=== PATIENT | male | born 1945 | race Native Hawaiian/Other Pacific Islander ===

== ENCOUNTER 2016-07-19 15:16 | Outpatient (CLI) | payer OTHER ==
[2016-07-19] MEDS ORDERED: ALLO300T23 PO (16:01)
[2016-07-19] MEDS ORDERED: KLOR-CON M1010 MEQ PO (16:01)
[2016-07-19] MEDS ORDERED: METFTAB PO (16:03)
[2016-07-19] MEDS ORDERED: SIMV40TA57 (16:04)
[2016-07-19] MEDS ORDERED: FURO40TA93 PO ×2 (16:04→23:30)
[2016-07-19] MEDS ORDERED: TYLENOL/COD PO (16:05)
[2016-07-19] MEDS ORDERED: COLCHICINE0.6 MG PO (16:05)
[2016-07-19] MEDS ORDERED: CRESTOR20 MG PO (16:06)
[2016-07-19] MEDS ORDERED: METFORMIN HCL500 M1 PO (16:07)
[2016-07-19] MEDS ORDERED: EQ ASPIRIN325 M2 PO (16:07)
[2016-07-19] MEDS ORDERED: TRIA37.541 PO (16:07)
[2016-07-19] MEDS ORDERED: GLIM2TAB PO (16:09)
[2016-07-19] MEDS ORDERED: BENA20TA2 PO (16:09)
[2016-07-19] MEDS ORDERED: GABA300C2 PO ×2 (16:10→23:34)
[2016-07-19] MEDS ORDERED: FURO20TA67 PO (23:33)
== END 2016-07-19 15:40 | disposition short-term general hospital (02) ==
LOC: AMB 15:16
DX: R41.82 Altered mental status, unspecified (principal); E16.1 Other hypoglycemia
CPT/HCPCS: A0425; A0427

== ENCOUNTER 2016-07-19 15:45 | Inpatient (IN) | payer OTHER ==
[~2016-07-19] VITALS: Ht 177.8 cm; Wt 123.9 kg
[2016-07-19 15:45] VITALS: BP 127/48; TEMP 97.5
[2016-07-19] MEDS ORDERED: ALLO300T23 PO (16:01)
[2016-07-19] MEDS ORDERED: KLOR-CON M1010 MEQ PO (16:01)
[2016-07-19] MEDS ORDERED: METFTAB PO (16:03)
[2016-07-19] MEDS ORDERED: FURO40TA93 PO ×2 (16:04→23:30)
[2016-07-19] MEDS ORDERED: SIMV40TA57 (16:04)
[2016-07-19] MEDS ORDERED: COLCHICINE0.6 MG PO (16:05)
[2016-07-19] MEDS ORDERED: TYLENOL/COD PO (16:05)
[2016-07-19] MEDS ORDERED: CRESTOR20 MG PO (16:06)
[2016-07-19] MEDS ORDERED: EQ ASPIRIN325 M2 PO (16:07)
[2016-07-19] MEDS ORDERED: TRIA37.541 PO (16:07)
[2016-07-19] MEDS ORDERED: METFORMIN HCL500 M1 PO (16:07)
[2016-07-19] MEDS ORDERED: GLIM2TAB PO (16:09)
[2016-07-19] MEDS ORDERED: BENA20TA2 PO (16:09)
[2016-07-19] MEDS ORDERED: GABA300C2 PO ×2 (16:10→23:34)
[2016-07-19 16:48] LABS: PLATELET COUNT 293 K/uL (142-355)
[2016-07-19 16:55] LABS: POTASSIUM 3.1 mmol/L (3.6-5.2)
[2016-07-19 22:43] VITALS: BP 169/63; TEMP 97.8; Ht 177.8 cm; Wt 123.9 kg
[2016-07-19] MEDS ORDERED: FURO20TA67 PO (23:33)
[2016-07-20] VITALS: BP 169/63; TEMP 97.8
[2016-07-20 04:00] VITALS: BP 126/52; TEMP 99.3
[2016-07-20 05:49] LABS: PLATELET COUNT 236 K/uL (142-355)
[2016-07-20 06:08] LABS: POTASSIUM 4.4 mmol/L (3.6-5.2)
[2016-07-20 08:00] VITALS: BP 153/47; TEMP 98.5
[2016-07-20 12:00] VITALS: BP 156/68; TEMP 101.2
[2016-07-20 16:00] VITALS: BP 161/53; TEMP 99.4
[2016-07-20 20:00] VITALS: BP 160/60; TEMP 98.5
[2016-07-21] VITALS: BP 154/61; TEMP 98.4
[2016-07-21 04:00] VITALS: BP 139/54; TEMP 98.8
[2016-07-21 05:06] LABS: PLATELET COUNT 247 K/uL (142-355)
[2016-07-21 05:26] LABS: POTASSIUM 4.4 mmol/L (3.6-5.2)
[2016-07-21 08:00] VITALS: BP 130/59; TEMP 97.8
[2016-07-21 11:27] VITALS: BP 155/69; TEMP 97.9
[2016-07-21 16:00] VITALS: BP 147/61; TEMP 98.4
[2016-07-21 20:00] VITALS: BP 122/67; TEMP 98.1
[2016-07-22] VITALS: BP 148/70; TEMP 97.5
[2016-07-22 04:00] VITALS: BP 155/68; TEMP 97.4
[2016-07-22 04:46] LABS: PLATELET COUNT 225 K/uL (142-355)
[2016-07-22 04:58] LABS: POTASSIUM 4.2 mmol/L (3.6-5.2)
[2016-07-22 08:00] VITALS: BP 184/88; TEMP 98
[2016-07-22 12:00] VITALS: BP 155/66; TEMP 98
[2016-07-22 16:00] VITALS: BP 147/73; TEMP 98.3
== END 2016-07-22 16:54 | disposition home or self-care (01) | DRG 684 ==
LOC: ED 15:45 → MED/SURG 21:05
PROVIDERS: Emergency Medicine
DX: N17.8 Other acute kidney failure (principal); R55 Syncope and collapse; E11.649 Type 2 diabetes mellitus with hypoglycemia without coma; E86.0 Dehydration; I10 Essential (primary) hypertension
CPT/HCPCS: 36415; 36600; 80053; 81000; 82043; 82436; 82550; 82570; 82805; 82947; 82948; 83036; 83516; 83735; 83874; 83880; 83935; 84133; 84156; 84165; 84300; 84550; 85027; 85651; 86039; 86140; 86160; 87040; 87077; 87185; 87186; 87205; 96365; 96366; 96375; 99284; J7060

== ENCOUNTER 2016-07-29 15:25 | Outpatient (CLI) | payer OTHER ==
[~2016-07-29 15:25] MED LIST: ALLO300T23 PO; BENA20TA2 PO; COLCHICINE0.6 MG PO; CRESTOR20 MG PO; EQ ASPIRIN325 M2 PO; FURO20TA67 PO; FURO40TA93 PO; GABA300C2 PO; GLIM2TAB PO; KLOR-CON M1010 MEQ PO; METFORMIN HCL500 M1 PO; METFTAB PO; SIMV40TA57; TRIA37.541 PO; TYLENOL/COD PO
[2016-07-29 16:24] LABS: PLATELET COUNT 300 K/uL (142-355)
[2016-07-29 17:02] LABS: POTASSIUM 3.9 mmol/L (3.6-5.2)
== END 2016-07-29 22:41 | disposition home or self-care (01) ==
LOC: LABW 15:25
PROVIDERS: Internal Medicine Nephrology
DX: N18.3 Chronic kidney disease, stage 3 (moderate) (principal); E11.9 Type 2 diabetes mellitus without complications; I10 Essential (primary) hypertension; R82.99 Other abnormal findings in urine
CPT/HCPCS: 36415; 80053; 81000; 82570; 83516; 84155; 84165; 85027; 86039; 86160; 86255; 87088

== ENCOUNTER 2016-09-02 08:09 | Outpatient (CLI) | payer OTHER ==
[2016-09-02 08:31] LABS: POTASSIUM 3.6 mmol/L (3.6-5.2)
== END 2016-09-02 19:29 | disposition home or self-care (01) ==
LOC: LABW 08:09
PROVIDERS: Internal Medicine Nephrology
DX: N17.8 Other acute kidney failure (principal)
CPT/HCPCS: 36415; 80048

== ENCOUNTER 2016-09-04 08:35 | Outpatient (CLI) | payer OTHER ==
[2016-09-04 09:17] LABS: POTASSIUM 3.5 mmol/L (3.6-5.2)
== END 2016-09-04 19:15 | disposition home or self-care (01) ==
LOC: LABW 08:35
PROVIDERS: Internal Medicine Nephrology
DX: N17.8 Other acute kidney failure (principal)
CPT/HCPCS: 36415; 80048

== ENCOUNTER 2016-09-09 09:08 | Outpatient (CLI) | payer OTHER ==
[2016-09-09 09:27] LABS: PLATELET COUNT 320 K/uL (142-355)
[2016-09-09 09:34] LABS: POTASSIUM 3.7 mmol/L (3.6-5.2)
== END 2016-09-09 19:10 | disposition home or self-care (01) ==
LOC: LABW 09:08
PROVIDERS: Physician Assistant
DX: N17.8 Other acute kidney failure (principal); D63.1 Anemia in chronic kidney disease
CPT/HCPCS: 36415; 80053; 84100; 85027

== ENCOUNTER 2016-09-12 08:23 | Outpatient (CLI) | payer OTHER ==
[2016-09-12 08:44] LABS: POTASSIUM 3.8 mmol/L (3.6-5.2)
== END 2016-09-12 19:26 | disposition home or self-care (01) ==
LOC: LABW 08:23
PROVIDERS: Internal Medicine Nephrology
DX: N17.8 Other acute kidney failure (principal)
CPT/HCPCS: 36415; 80048

== ENCOUNTER 2016-09-15 08:21 | Outpatient (CLI) | payer OTHER ==
[2016-09-15 08:50] LABS: POTASSIUM 3.6 mmol/L (3.6-5.2)
== END 2016-09-15 09:30 | disposition home or self-care (01) ==
LOC: LABW 08:21
PROVIDERS: Internal Medicine Nephrology
DX: N17.8 Other acute kidney failure (principal)
CPT/HCPCS: 36415; 80048

== ENCOUNTER 2016-09-22 08:03 | Outpatient (CLI) | payer OTHER ==
[2016-09-22 08:51] LABS: POTASSIUM 3.6 mmol/L (3.6-5.2)
== END 2016-09-22 19:10 | disposition home or self-care (01) ==
LOC: LABW 08:03
PROVIDERS: Internal Medicine Nephrology
DX: N17.8 Other acute kidney failure (principal)
CPT/HCPCS: 36415; 80048

== ENCOUNTER 2016-09-24 08:08 | Outpatient (CLI) | payer OTHER ==
[2016-09-24 08:59] LABS: POTASSIUM 4.4 mmol/L (3.6-5.2)
== END 2016-09-24 09:10 | disposition home or self-care (01) ==
LOC: LABW 08:08
PROVIDERS: Internal Medicine Nephrology
DX: N17.8 Other acute kidney failure (principal)
CPT/HCPCS: 36415; 80048

== ENCOUNTER 2016-09-26 08:06 | Outpatient (CLI) | payer OTHER ==
[2016-09-26 08:56] LABS: POTASSIUM 4.4 mmol/L (3.6-5.2)
== END 2016-09-26 09:10 | disposition home or self-care (01) ==
LOC: LABW 08:06
PROVIDERS: Internal Medicine Nephrology
DX: N17.8 Other acute kidney failure (principal)
CPT/HCPCS: 36415; 80048

== ENCOUNTER 2016-09-29 08:10 | Outpatient (CLI) | payer OTHER ==
[2016-09-29 09:00] LABS: POTASSIUM 4.3 mmol/L (3.6-5.2)
== END 2016-09-29 09:15 | disposition home or self-care (01) ==
LOC: LABW 08:10
PROVIDERS: Internal Medicine Nephrology
DX: N17.8 Other acute kidney failure (principal)
CPT/HCPCS: 36415; 80048

== ENCOUNTER 2016-10-01 08:27 | Outpatient (CLI) | payer OTHER ==
[2016-10-01 08:52] LABS: POTASSIUM 5.1 mmol/L (3.6-5.2)
== END 2016-10-01 19:31 | disposition home or self-care (01) ==
LOC: LABW 08:27
PROVIDERS: Internal Medicine Nephrology
DX: N17.8 Other acute kidney failure (principal)
CPT/HCPCS: 36415; 80048

== ENCOUNTER 2016-10-03 08:30 | Outpatient (CLI) | payer OTHER ==
[2016-10-03 09:04] LABS: POTASSIUM 5.4 mmol/L (3.6-5.2)
== END 2016-10-03 19:04 | disposition home or self-care (01) ==
LOC: LABW 08:30
PROVIDERS: Internal Medicine Nephrology
DX: N17.8 Other acute kidney failure (principal)
CPT/HCPCS: 80048

== ENCOUNTER 2016-10-08 08:31 | Outpatient (CLI) | payer OTHER ==
[2016-10-08 08:53] LABS: POTASSIUM 5.2 mmol/L (3.6-5.2)
== END 2016-10-08 19:01 | disposition home or self-care (01) ==
LOC: LABW 08:31
PROVIDERS: Internal Medicine Nephrology
DX: N17.8 Other acute kidney failure (principal)
CPT/HCPCS: 36415; 80048

== ENCOUNTER 2016-10-10 08:23 | Outpatient (CLI) | payer OTHER ==
[2016-10-10 08:42] LABS: POTASSIUM 5.5 mmol/L (3.6-5.2)
== END 2016-10-10 19:06 | disposition home or self-care (01) ==
LOC: LABW 08:23
PROVIDERS: Internal Medicine Nephrology
DX: N17.8 Other acute kidney failure (principal)
CPT/HCPCS: 36415; 80048

== ENCOUNTER 2016-10-13 08:08 | Outpatient (CLI) | payer OTHER | END 2016-10-13 09:10 | disposition home or self-care (01) | LOC: LABW 08:08 | PROVIDERS: Internal Medicine Nephrology | DX: N17.8 Other acute kidney failure (principal) | CPT/HCPCS: 36415; 80048 ==

== ENCOUNTER 2016-12-23 12:09 | Outpatient (CLI) | payer OTHER ==
[2016-12-23 13:41] LABS: POTASSIUM 4.6 mmol/L (3.6-5.2)
== END 2016-12-23 13:10 | disposition home or self-care (01) ==
LOC: LABW 12:09
PROVIDERS: Internal Medicine Nephrology
DX: N18.3 Chronic kidney disease, stage 3 (moderate) (principal); N04.8 Nephrotic syndrome with other morphologic changes; E11.9 Type 2 diabetes mellitus without complications
CPT/HCPCS: 36415; 80053; 82570; 84155

== ENCOUNTER 2017-03-04 09:51 | Outpatient (CLI) | payer OTHER ==
[2017-03-04 10:15] LABS: PLATELET COUNT 245 K/uL (142-355)
[2017-03-04 13:22] LABS: POTASSIUM 4.5 mmol/L (3.6-5.2)
== END 2017-03-04 19:34 | disposition home or self-care (01) ==
LOC: LABW 09:51
PROVIDERS: Internal Medicine Nephrology
DX: I12.9 Hypertensive chronic kidney disease with stage 1 through stage 4 chronic kidney disease, or unspecified chronic kidney disease (principal); N18.4 Chronic kidney disease, stage 4 (severe); E11.9 Type 2 diabetes mellitus without complications; D51.0 Vitamin B12 deficiency anemia due to intrinsic factor deficiency; Z12.5 Encounter for screening for malignant neoplasm of prostate; R06.09 Other forms of dyspnea; R97.20 Elevated prostate specific antigen [PSA]
CPT/HCPCS: 36415; 80053; 80061; 81000; 82043; 82570; 82607; 83036; 83880; 83970; 84100; 84153; 84155; 84443; 85027

== ENCOUNTER 2017-03-13 11:40 | Outpatient (CLI) | payer OTHER ==
[2017-03-13 12:01] LABS: PLATELET COUNT 315 K/uL (142-355)
[2017-03-13 12:18] LABS: POTASSIUM 4.3 mmol/L (3.6-5.2)
== END 2017-03-13 19:19 | disposition home or self-care (01) ==
LOC: LABW 11:40
PROVIDERS: Internal Medicine Nephrology
DX: I12.9 Hypertensive chronic kidney disease with stage 1 through stage 4 chronic kidney disease, or unspecified chronic kidney disease (principal); N18.3 Chronic kidney disease, stage 3 (moderate)
CPT/HCPCS: 36415; 80053; 85027

== ENCOUNTER 2017-04-24 11:48 | Outpatient (CLI) | payer OTHER ==
[2017-04-24 12:04] LABS: PLATELET COUNT 273 K/uL (142-355)
[2017-04-24 12:18] LABS: POTASSIUM 4.5 mmol/L (3.6-5.2)
== END 2017-04-24 19:31 | disposition home or self-care (01) ==
LOC: LABW 11:48
PROVIDERS: Internal Medicine Nephrology
DX: I12.9 Hypertensive chronic kidney disease with stage 1 through stage 4 chronic kidney disease, or unspecified chronic kidney disease (principal); N18.3 Chronic kidney disease, stage 3 (moderate); E11.9 Type 2 diabetes mellitus without complications
CPT/HCPCS: 36415; 80048; 82570; 83036; 84155; 85027

== ENCOUNTER 2017-05-25 14:12 | Outpatient (CLI) | payer OTHER ==
[2017-05-25 14:26] LABS: PLATELET COUNT 194 K/uL (142-355)
[2017-05-25 14:36] LABS: POTASSIUM 5.3 mmol/L (3.6-5.2)
== END 2017-05-25 20:08 | disposition home or self-care (01) ==
LOC: LABW 14:12
PROVIDERS: Physician Assistant
DX: R53.1 Weakness (principal); N18.4 Chronic kidney disease, stage 4 (severe); R05 Cough; J18.9 Pneumonia, unspecified organism
CPT/HCPCS: 36415; 80053; 85027

== ENCOUNTER 2017-08-06 14:58 | Outpatient (CLI) | payer OTHER | END 2017-08-06 22:30 | disposition home or self-care (01) | LOC: LABW 14:58 | DX: R42 Dizziness and giddiness (principal) | CPT/HCPCS: 36415; 85651; 86592 ==

== ENCOUNTER 2018-09-02 15:32 | Outpatient (CLI) | payer OTHER ==
[2018-09-02 15:51] LABS: PLATELET COUNT 239 K/uL (142-355)
[2018-09-02 16:01] LABS: POTASSIUM 4.7 mmol/L (3.6-5.2)
== END 2018-09-02 19:22 | disposition home or self-care (01) ==
LOC: LABW 15:32
PROVIDERS: Physician Assistant
DX: Z49.32 Encounter for adequacy testing for peritoneal dialysis (principal); R80.1 Persistent proteinuria, unspecified
CPT/HCPCS: 36415; 80053; 84100; 85027

== ENCOUNTER 2019-10-14 11:47 | Emergency (ER) | payer OTHER ==
[~2019-10-14] VITALS: Ht 175.3 cm; Wt 112.5 kg
[2019-10-14 11:50] VITALS: TEMP 98.5
[2019-10-14 16:15] VITALS: BP 126/55
== END 2019-10-14 16:15 | disposition home or self-care (01) ==
LOC: ED 11:47
DX: L76.22 Postprocedural hemorrhage of skin and subcutaneous tissue following other procedure (principal)
CPT/HCPCS: 99282

== ENCOUNTER 2020-02-23 14:17 | Outpatient (CLI) | payer OTHER | END 2020-02-23 19:07 | disposition home or self-care (01) | LOC: LAB 14:17 | PROVIDERS: ATTEND Physician Assistant Medical | DX: D64.89 Other specified anemias (principal) | CPT/HCPCS: 85014; 85018 ==

== ENCOUNTER 2020-03-21 10:15 | Outpatient (CLI) | payer OTHER ==
[2020-03-21 10:34] LABS: PLATELET COUNT 273 K/uL (142-355)
[2020-03-21 10:57] LABS: POTASSIUM 4.2 mmol/L (3.6-5.2)
== END 2020-03-21 22:11 | disposition home or self-care (01) ==
LOC: LABW 10:15
PROVIDERS: ATTEND Internal Medicine
DX: E11.9 Type 2 diabetes mellitus without complications (principal)
CPT/HCPCS: 36415; 80053; 80061; 83036; 84439; 84443; 85027

== ENCOUNTER 2020-04-28 12:17 | Outpatient (CLI) | payer OTHER | END 2020-04-28 19:10 | disposition home or self-care (01) | LOC: LAB 12:17 | PROVIDERS: ATTEND Internal Medicine | DX: D64.89 Other specified anemias (principal) | CPT/HCPCS: 85014; 85018 ==

== ENCOUNTER 2020-08-31 08:55 | Outpatient (CLI) | payer OTHER | END 2020-08-31 22:47 | disposition home or self-care (01) | LOC: US 08:55 | PROVIDERS: ATTEND Internal Medicine | DX: Z13.6 Encounter for screening for cardiovascular disorders (principal); Z12.2 Encounter for screening for malignant neoplasm of respiratory organs; Z87.891 Personal history of nicotine dependence ==

== ENCOUNTER 2020-09-06 11:40 | Outpatient (CLI) | payer OTHER | END 2020-09-06 22:48 | disposition home or self-care (01) | LOC: LABW 11:40 | PROVIDERS: ATTEND Internal Medicine Gastroenterology | DX: R94.8 Abnormal results of function studies of other organs and systems (principal) | CPT/HCPCS: 36415; 84153 ==

== ENCOUNTER 2021-05-07 12:04 | Outpatient (CLI) | payer OTHER | END 2021-05-07 19:30 | disposition home or self-care (01) | LOC: LABW 12:04 | PROVIDERS: ATTEND Internal Medicine Nephrology | DX: Z01.818 Encounter for other preprocedural examination (principal); N18.6 End stage renal disease | CPT/HCPCS: 36415; 84154 ==

== ENCOUNTER 2022-05-13 12:40 | Outpatient (CLI) | payer OTHER ==
[2022-05-13 13:14] LABS: PLATELET COUNT 299 K/uL (142-355)
[2022-05-13 13:58] LABS: POTASSIUM 5.8 mmol/L (3.6-5.2)
== END 2022-05-13 23:22 | disposition home or self-care (01) ==
LOC: LAB 12:40
PROVIDERS: ATTEND Internal Medicine
DX: E11.9 Type 2 diabetes mellitus without complications (principal); R97.20 Elevated prostate specific antigen [PSA]
CPT/HCPCS: 80053; 80061; 81002; 82043; 83036; 84153; 84439; 84443; 85027

== ENCOUNTER 2022-07-14 15:15 | Outpatient (CLI) | payer OTHER | END 2022-07-14 19:05 | disposition home or self-care (01) | LOC: LAB 15:15 → RAD 15:15 → LAB 19:05 | PROVIDERS: ATTEND Internal Medicine | DX: J18.9 Pneumonia, unspecified organism (principal); N39.0 Urinary tract infection, site not specified | CPT/HCPCS: 87088 ==

== ENCOUNTER 2022-09-11 11:33 | Outpatient (CLI) | payer OTHER ==
[2022-09-11 11:42] LABS: PLATELET COUNT 184 K/uL (142-355)
[2022-09-11 13:08] LABS: POTASSIUM 5.5 mmol/L (3.6-5.2)
== END 2022-09-11 19:20 | disposition home or self-care (01) ==
LOC: LAB 11:33
PROVIDERS: ATTEND Internal Medicine
DX: E11.9 Type 2 diabetes mellitus without complications (principal)
CPT/HCPCS: 80053; 80061; 81002; 83036; 84439; 84443; 85027

== ENCOUNTER 2022-12-12 13:01 | Outpatient (CLI) | payer OTHER | END 2022-12-12 19:10 | disposition home or self-care (01) | LOC: RAD 13:01 | PROVIDERS: ATTEND Internal Medicine Nephrology | DX: R05.9 Cough, unspecified (principal) ==